=== PATIENT | male | born 2000 | race African-American/Black ===

== ENCOUNTER 2018-03-01 16:49 | Emergency (ER) | payer OTHER ==
[~2018-03-01] VITALS: Ht 193 cm; Wt 130.4 kg
[2018-03-01 18:01] LABS: HEMATOCRIT 44.6 % (38.0-50.0); HEMOGLOBIN 15.4 G/DL (12.5-16.6); MCHC 34.5 G/DL (30.0-36.0); MCV 89.7 FL (86-99); PLATELET COUNT 289 K/uL (156-360); RBC DIS.WIDTH-CV 12.4 % (11.8-14.6); RBC DIS.WIDTH-SD 40.8 % (39-53); RED BLOOD COUNT 4.97 M/uL (4.00-5.50); WHITE BLOOD COUNT 5.6 K/uL (4.1-10.2)
[2018-03-01 18:13] LABS: CHLORIDE 106 mEq/L (99-109); POTASSIUM 3.5 mEq/L (3.7-5.4); SODIUM 142 mEq/L (136-147)
[2018-03-01 18:14] LABS: GLUCOSE 85 mg/dL (70-99)
[2018-03-01 18:18] LABS: CREATININE 0.9 mg/dL (0.6-1.3); GFR ESTIMATE (CALCULATED) > 59 mL/min/ (58.99-99999)
[2018-03-01 18:19] LABS: TROP-I INTERPRETATION NEGATIVE; TROPONIN-I < 0.01 ng/mL (0.0-0.30); UREA NITROGEN (BUN) 10 mg/dL (9-23)
[2018-03-01 18:58] VITALS: BP 130/76
== END 2018-03-01 19:00 | disposition home or self-care (01) ==
LOC: RME 16:49 → EME 16:49 → RME 19:00
PROVIDERS: Physician Assistant
DX: R07.9 Chest pain, unspecified (principal); J45.909 Unspecified asthma, uncomplicated; F17.200 Nicotine dependence, unspecified, uncomplicated
CPT/HCPCS: 71046; 80048; 84484; 85027; 93005; 99281; 99285